=== PATIENT | female | born 1930 | race Caucasian/White ===

== ENCOUNTER → 2017-01-15 | Outpatient (CLI) | payer MEDICARE, BC ==
[~2017-01-15] MED LIST: CIPRO 500MG TA500 MG PO; FLAGYL500 MG PO; LEVAQUIN 750MG750 M1 PO; OMNICEF 300MG300 MG PO; PRILOTC; PYRIDIUM200 M1 PO; ULTRAM 50MG TAB50 MG PO; ZESTRIL 10MG10 MG PO; ZOFRAN8 MG PO
== END ==
LOC: COL.RAD 07:53
DX: R31.0 Gross hematuria (principal); K76.89 Other specified diseases of liver; K57.90 Diverticulosis of intestine, part unspecified, without perforation or abscess without bleeding
CPT/HCPCS: Q9967

== ENCOUNTER 2017-05-10 06:58 | Emergency (ER) | payer MEDICARE, BC ==
[~2017-05-10] VITALS: Ht 170.2 cm; Wt 77.3 kg
[~2017-05-10 06:58] MED LIST changes: -CIPRO 500MG TA500 MG PO; -FLAGYL500 MG PO; -LEVAQUIN 750MG750 M1 PO; -ULTRAM 50MG TAB50 MG PO; -ZOFRAN8 MG PO
[2017-05-10 07:00] VITALS: TEMP 99.7
[2017-05-10] MEDS ORDERED: ZOFRAN8 MG PO (07:24)
[2017-05-10] MEDS ORDERED: CIPRO 500MG TA500 MG PO (07:24)
[2017-05-10] MEDS ORDERED: PYRIDIUM200 M1 PO (07:24)
[2017-05-10] MEDS ORDERED: ULTRAM 50MG TAB50 MG PO (07:24)
[2017-05-10 07:44] LABS: PH 5 (5-8); SQUAMOUS EPITHELIAL 0-2 /hpf; URINE APPEARANCE Clear; URINE BACTERIA None Seen /hpf; URINE BILIRUBIN Negative (NEGATIVE); URINE BLOOD 2+ (NEGATIVE); URINE COLOR Yellow; URINE GLUCOSE Negative (NEGATIVE); URINE KETONE Negative (NEGATIVE); URINE UROBILINOGEN Negative (NEGATIVE)
[2017-05-10 08:09] LABS: HEMATOCRIT 37.7 % (37.0-47.0); HEMOGLOBIN 12.4 g/dl (12.5-16.0); MEAN CELL VOLUME 97 fl (80.0-100.0); MEAN CORPUSCULAR HEMOGLOBIN 32 pg (27.0-31.0); MEAN CORPUSCULAR HGB CONC 33 g/dl (33.0-37.0); MEAN PLATELET VOLUME 10.8 fl (7.4-10.4); PLATELET COUNT 207 K/mm3 (130-400); RED BLOOD COUNT 3.89 M/mm3 (4.10-5.30); REDCELL DISTRIBUTION WIDTH-CV 12.5 % (11.5-14.5)
[2017-05-10 08:15] LABS: ADD PATHOLOGY DIFF REVIEW NO; WHITE BLOOD COUNT 51.1 K/mm3 (4.8-10.8)
[2017-05-10 08:19] LABS: ADJUSTED CALCIUM 9.1 mg/dL (8.4-10.2); ALBUMIN 4.4 gm/dL (3.5-5.0); BILIRUBIN,TOTAL 1.6 mg/dL (0.0-1.0); CALCIUM 9.4 mg/dL (8.4-10.2); CREATININE, serum 0.79 mg/dL (0.52-1.25); TOTAL PROTEIN 7.1 gm/dL (6.4-8.2)
[2017-05-10 08:56] LABS: BAND 6 % (0-10); MYELOCYTE 1 % (0-0); NEUTROPHILS 10 % (42.0-75.2); PLATELET ESTIMATE NORMAL (NORMAL); TOTAL CELLS COUNTED 100
[2017-05-10] MEDS ORDERED: FLAGYL500 MG PO (09:06)
[2017-05-10] MEDS ORDERED: LEVAQUIN 750MG750 M1 PO (09:06)
[2017-05-10 10:07] VITALS: BP 101/54; PULSE 79
[2017-05-13] MEDS ORDERED: OMNICEF 300MG300 MG PO (12:31)
== END 2017-05-10 10:13 | disposition home or self-care (01) ==
LOC: COL.ER 06:58
PROVIDERS: Emergency Medicine
DX: K57.32 Diverticulitis of large intestine without perforation or abscess without bleeding (principal); C91.10 Chronic lymphocytic leukemia of B-cell type not having achieved remission; R31.9 Hematuria, unspecified; I10 Essential (primary) hypertension
CPT/HCPCS: J1885; J2405; J7030; Q9967

== ENCOUNTER 2017-10-26 11:23 | Emergency (ER) | payer MEDICARE, BC ==
[~2017-10-26] VITALS: Ht 170.2 cm; Wt 76.4 kg
[~2017-10-26 11:23] MED LIST changes: +CIPRO 500MG TA500 MG PO; +FLAGYL500 MG PO; +LEVAQUIN 750MG750 M1 PO; +ULTRAM 50MG TAB50 MG PO; +ZOFRAN8 MG PO
[2017-10-26 11:27] VITALS: TEMP 98.1
[2017-10-26 12:05] LABS: COLLECTION METHOD CLEAN CATCH
[2017-10-26 12:11] LABS: MEAN CELL VOLUME 100 fl (80.0-100.0); MEAN CORPUSCULAR HGB CONC 32 g/dl (33.0-37.0); MEAN PLATELET VOLUME 11.1 fl (7.4-10.4); PLATELET COUNT 190 K/mm3 (130-400); RED BLOOD COUNT 3.66 M/mm3 (4.10-5.30)
[2017-10-26 12:18] LABS: MUCOUS Present /lpf; PH 5 (5-8); URINE APPEARANCE Clear; URINE BACTERIA Rare /hpf; URINE BILIRUBIN Negative (NEGATIVE); URINE BLOOD 2+ (NEGATIVE); URINE COLOR Amber; URINE GLUCOSE Negative (NEGATIVE); URINE KETONE Negative (NEGATIVE); URINE LEUKOCYTE ESTERASE 2+ (NEGATIVE); URINE PROTEIN(semi-quant) Negative (NEGATIVE)
[2017-10-26 12:19] LABS: HEMATOCRIT 36.5 % (37.0-47.0); HEMOGLOBIN 11.7 g/dl (12.5-16.0); MEAN CORPUSCULAR HEMOGLOBIN 32 pg (27.0-31.0); TOTAL CELLS COUNTED 0
[2017-10-26 12:30] LABS: ALBUMIN 4.2 gm/dL (3.5-5.0); BILIRUBIN,TOTAL 2.2 mg/dL (0.0-1.0); C-REACTIVE PROTEIN 6.7 mg/dL (0.0-0.9); CALCIUM 9.2 mg/dL (8.4-10.2); CREATININE, serum 0.73 mg/dL (0.52-1.25); POTASSIUM 3.6 mmol/L (3.4-5.0); TOTAL PROTEIN 6.7 gm/dL (6.4-8.2)
[2017-10-26] MEDS ORDERED: FLAGYL500 MG PO (14:23)
[2017-10-26] MEDS ORDERED: ZOFRAN 4MG T4 MG/TAB PO (14:23)
[2017-10-26] MEDS ORDERED: NORCO 325 MG-51 TAB PO (14:23)
[2017-10-26] MEDS ORDERED: LEVAQUIN 750MG750 M1 PO (14:23)
[2017-10-26 14:41] VITALS: BP 129/88; PULSE 77
[2017-10-26 14:49] LABS: ADD PATHOLOGY DIFF REVIEW YES
[2017-10-27 09:09] LABS: PATHOLOGY DIFF REVIEW OK +
== END 2017-10-26 14:40 | disposition home or self-care (01) ==
LOC: COL.ER 11:23
PROVIDERS: Emergency Medicine
DX: K57.92 Diverticulitis of intestine, part unspecified, without perforation or abscess without bleeding (principal); Z85.6 Personal history of leukemia
CPT/HCPCS: J2405; J7030; Q9967

== ENCOUNTER → 2022-07-11 | Outpatient (CLI) | payer MEDICARE, BC ==
[~2022-07-11] MED LIST changes: +NORCO 325 MG-51 TAB PO; +ZOFRAN 4MG T4 MG/TAB PO
== END ==
LOC: COL.RAD 11:44
DX: N26.1 Atrophy of kidney (terminal) (principal); N30.20 Other chronic cystitis without hematuria